=== PATIENT | female | born 1985 | race Caucasian/White ===

== ENCOUNTER 2024-08-06 18:08 | Emergency (ER) | payer SELFPAY ==
[2024-08-06] VITALS (9 sets, daily range): BP systolic 122–160; BP diastolic 74–110; PULSE 117–127; RESP 11–24; TEMP 37.1; O2SAT 98–100
--- OUTSIDE RECORDS SUMMARY | 2024-08-06 18:11 | XMS_ITS | Encounter Summary ---
Author Organization [facility] - [facility] Address [address] [place] [address] Care Team Providers Care Strainer Cleaner Name Role Phone Mana Choudhary MD Primary Care Provider [phone] Encounter Details Date Type Department Care Team (Late st Contact Info) Description 10/17/2022 Roadster Message [facility] Patient Accounts [address] [place] [address] [facility] Payment Plan Social History Tobacco Use Types Packs/Day Years Used Date Smoking Tobacco: Never Assessed Comments Unknown Sex and Gender Information Value Date Recorded Sex Assigned at Not on file Legal Sex Female 9:01 PM CDT Gender Identity Not on file Sexual Orientation Not on file documented as of this encounter Plan of Treatment Not on file documented as of this encounter Visit Diagnoses Not on filedocumented in this encounter Care Teams Strainer Cleaner Relationship Specialty [place] [address] [place], [place] [address] [id number] PCP - General FAMILY PRACTICE 01/26/20 documented as of this encounter
--- OUTSIDE RECORDS SUMMARY | 2024-08-06 18:11 | XMS_ITS | Encounter Summary ---
Author Organization [facility] - [facility] Address [address] [place] [address] Care Team Providers Care Coat Feller Name Role Phone Mana Choudhary MD Primary Care Provider [phone] Encounter Details Date Type Department Care Team (Late st Contact Info) Description 06/13/2022 BladeLogic Message [facility] Patient Accounts [address] [place] [address] [facility] ACTION REQUIRED Social History Tobacco Use Types Packs/Day Years [...] on filedocumented in this encounter Care Teams Coat Feller Relationship Specialty [place] [address] [place], [place] [address] [phone] PCP - General FAMILY PRACTICE 01/26/20 documented as of this encounter
--- OUTSIDE RECORDS SUMMARY | 2024-08-06 18:11 | XMS_ITS | Clinical Summary ---
Author Organization [facility] Address [address] [place] [address] Care Team Providers Care Airset Molder Name Role Phone Mana Choudhary MD Primary Care Provider [phone] Family History Medical History Relation Comments Breast Cancer Mother Relation Status Comments Mother Social History Tobacco Use Types Packs/Day Years Used Date Smoking Tobacco: Never Assessed Comments Unknown Sex and Gender Information Value Date Recorded Sex Assigned at Not on file Legal Sex Female 9:01 PM CDT Gender Identity Not on file Sexual Orientation Not on file Plan of Treatment Health Maintenance Due Date Last Done Comments Cervical Cancer Screening Pap Smear (Age 30 to 64) Every 3 Years 1984 Annual Physical 01/30/1987 Hepatitis C 01/30/2002 DTaP, Tdap and Td Vaccines (1 - Tdap) 01/30/2003 Hepatitis B Vaccines (1 of 3 - 19+ 3-dose series) 01/30/2003 Cervical Cancer Screening Pap with HPV Testing (Age 30 to 64) Every 5 Years 01/30/2014 Cervical Cancer Screening with HPV 01/30/2014 COVID-19 Vaccine ( season) 2023 Mammogram Screening 03/03/2026 03/03/2024, 08/01/2022, 04/26/2021, Additional history exists HPV Vaccines Aged Out No longer eligi ble based on patient's age to complete this topic Meningococcal B Vaccine Aged Out No l onger eligible based on patient's age to complete this topic Meningococcal Vaccine Aged Out No naye patricio eligible based on patient's age to complete this topic Pneumococcal Vaccine: Pediatrics (0 to 5 Years) and At-Risk Patients (6 to 64 Years) Aged Out No longer eligible based on patient's age to complete this topic RSV Immunizations Under 20 Months Aged Out No longer eligible based on patient's age to complete this topic Procedures Procedure Name Priority Date/Time Associated Diagnosis Comments MG SCREENING W PAYTON LASHAE DIGI Routine 03/03/2024 2:30 PM ASSIGNMENT OFFICER Screening mammogram for breast cancer from Last 3 Months or Most Recently Relevant to Health Maintenance Results * MG SCREENING W PAYTON LASHAE DIGI (03/03/2024 2:30 PM ASSIGNMENT OFFICER) Anatomical Region Laterality Modality Breast Bilateral Mammography 03/03/2024 2:15 PM ASSIGNMENT OFFICER Impressions 03/03/2024 2:15 PM ASSIGNMENT OFFICER IMPRESSION: No suspicious change since the previous exams. Recommendation: 1: Routine Screening Bilateral in 1 Year Assessment: ACR BI-RADS 1 - NEGATIVE Ordered By: CLEMENCIA PÉREZ Interpreted By: Fabrizio Graves MD, 03/03/2024 2:15 PM Narrative 03/03/2024 2:15 PM ASSIGNMENT OFFICER [address] [place] [address] Examination: Digital screening mammogram with CAD. Clinical history: Asymptomatic patient presents for routine screening. Comparison: 08/01/2022, 04/26/2021, 02/16/2020, 03/10/2018, 04/13/2016. Technique: Bilateral digital mammograms. The exam was interpreted with the use of a computer-aided detection (CAD) system. Additional 3-D tomosynthesis images were acquired. Tissue density: The breast tissue is heterogeneously dense. Findings: The breast tissue is heterogeneously dense. The dense tissue may obscure some lesions mammographically. No suspicious mass, microcalcification or area of architectural distortion can be identified. From a mammographic standpoint, routine followup in one year would seem adequate. Clemencia Pérez DISPUTE COORDINATOR MAMMO Final Result from Last 3 Months or Most Recently Relevant to Health Maintenance Insurance [facility] Care Teams Airset Molder Relationship Specialty Start Date End Date Mana Choudhary MD [address] [place] [phone] PCP - General FAMILY PRACTICE 01/26/20
--- NOTE | 2024-08-06 18:17 | ECG_ITS ---
Test Date: 2024-08-06 18:35:22 Measurements Intervals [place] Rate: 125 P: 55 IN: 142 QRS: 45 QRSD: 90 T: 35 QT: 298 QTc: 430 Interpretive Statements SINUS TACHYCARDIA EARLY PRECORDIAL R/S TRANSITION BASELINE ARTIFACT- III, AVL, AVF ABNORMAL ECG No previous ECG available for comparison Electronically Signed On 08-06-2024 18:40:10 CDT by Scott Hsieh D.O.
--- NOTE | 2024-08-06 18:17 | ED.PSYCH ---
HPI - Psych General Chief Complaint: Overdose <Bhavya Rubia Hernandez APRN - Last Filed: 08/06/24 18:27> Stated Complaint: Overdose-9-+ pills <Bhavya CastellanoAnnie Hernandez APRN - Last Filed: 08/06/24 18:27> Time Seen by Provider: 08/06/24 18:13 <Bhavya Rubia Hernandez APRN - Last Filed: 08/06/24 18:27> Focused HPI: Patient is a 39-year-old female presents to the ER after taking a ?handful of pills around 1715 this evening. She reports she thinks these pills include Abilify, duloxetine, phentermine, and lisinopril. Patient reports she told her boyfriend earlier today that she cheated on him and that's why she became suicidal. She denies any other previous suicide attempts. Patient reports she attempted to throw up after taking the pills and was successful in bringing up ?about 12 of them. She endorses history of high blood pressure and depression that started after my son was murdered 2 years ago. Patient reports she feels hot and woozy at the time of examination. GENERAL: Well-appearing, well-nourished, and in no acute distress. HEAD: Normocephalic, atraumatic. CHEST: Clear to auscultation. ?No respiratory distress. HEART: Regular rate and rhythm.? NEURO: ?Alert and oriented x3. Patient screened in triage and initial orders placed.? ?Additional care and disposition to be based upon?diagnostic testing and treatment. <Bhavya Hernandez APRN - Last Filed: 08/06/24 18:27> Source: patient and other (Steven) <Fatoumata Bell MD - Last Filed: 08/07/24 12:10> Mode of arrival: ambulatory <Fatoumata Bell MD - Last Filed: 08/07/24 12:10> Limitations: no limitations <Fatoumata Bell MD - Last Filed: 08/07/24 12:10> History of Present Illness HPI Narrative: Agree with the above with the following additions/corrections: Patient states that she took 15 tablets of 5 mg Abilify, 60 tablets of 60 mg duloxetine and an unknown number of lisinopril and trazodone. She denies any chest pain, headache, abdominal pain. She denies any nausea although she did attempt to vomit and states that approximately 15 pills came up. She states that she feels hot and cold and flushed. She denies any difficulty breathing. <Fatoumata Bell MD - Last Filed: 08/07/24 12:10> Related Data Allergies/Adverse Reactions: Allergies Allergy/AdvReac Type Severity Reaction Status Date / Time lamotrigine Allergy Unknown Rash Verified 08/06/24 18:10 Penicillins Allergy Unknown Rash Verified 08/06/24 18:10 <Bhavya Hernandez, MARKETING SERVICES VICE PRESIDENT - Last Filed: 08/06/24 18:27> PMFSH Past Medical History Medical History: Medical History Depression Hypertension <Bhavya Hernandez MARKETING SERVICES VICE PRESIDENT - Last Filed: 08/06/24 18:27> Family History Family History: Family History Son Murder approx 2022 <Bhavya Hernandez, MARKETING SERVICES VICE PRESIDENT - Last Filed: 08/06/24 18:27> Social History Social History: Social History Substance use type: does not use <Bhavya Hernandez, MARKETING SERVICES VICE PRESIDENT - Last Filed: 08/06/24 18:27> Exam Narrative: GENERAL: Well-appearing, well-nourished, and in no acute distress. HEAD: Normocephalic, atraumatic. EYES: Non injected, non icteric. Extraocular movements intact. No ocular clonus. ENT: Nares clear, no rhinorrhea or epistaxis. NECK: Supple. CHEST: Speaking in full sentences. No respiratory distress. HEART: Tachycardic rate and rhythm. . ABDOMEN: Soft, nondistended. EXTREMITIES: Normal range of motion. No lower extremity edema. SKIN: Warm, dry, no rash. NEURO: No focal deficits. Alert and oriented x3. No ankle myoclonus. PSYCH:Congruent mood and affect. Behavior: Calm, good eye contact. Speech: Appropriate rate, quantity and volume. Does not appear to be responding to internal stimulus <Fatoumata Bell MD - Last Filed: 08/07/24 12:10> Course Vital Signs Vital signs: Vital Signs Temperature 98.8 F 08/06/24 18:23 Pulse Rate 125 H 08/06/24 18:23 Respiratory Rate 20 08/06/24 18:23 Blood Pressure 152/97 H 08/06/24 18:23 Pulse Oximetry 100 08/06/24 18:23 Oxygen Delivery Room Air 08/06/24 18:23 Temperature 97.5 F L 08/07/24 11:10 Pulse Rate 109 H 08/07/24 11:10 Respiratory Rate 16 08/07/24 11:10 Blood Pressure 162/102 H 08/07/24 11:10 Pulse Oximetry 100 08/07/24 11:10 Oxygen Delivery Room Air 08/06/24 18:23 <Bhavya Hernandez, MARKETING SERVICES VICE PRESIDENT - Last Filed: 08/06/24 18:27> Vital Signs Temperature 98.8 F 08/06/24 18:23 Pulse Rate 125 H 08/06/24 18:23 Respiratory Rate 20 08/06/24 18:23 Blood Pressure 152/97 H 08/06/24 18:23 Pulse Oximetry 100 08/06/24 18:23 Oxygen Delivery Room Air 08/06/24 18:23 Temperature 97.5 F L 08/07/24 11:10 Pulse Rate 109 H 08/07/24 11:10 Respiratory Rate 16 08/07/24 11:10 Blood Pressure 162/102 H 08/07/24 11:10 Pulse Oximetry 100 08/07/24 11:10 Oxygen Delivery Room Air 08/06/24 18:23 <Fatoumata Bell MD - Last Filed: 08/07/24 12:10> Vital Signs Temperature 98.8 F 08/06/24 18:23 Pulse Rate 125 H 08/06/24 18:23 Respiratory Rate 20 08/06/24 18:23 Blood Pressure 152/97 H 08/06/24 18:23 Pulse Oximetry 100 08/06/24 18:23 Oxygen Delivery Room Air 08/06/24 18:23 Temperature 97.5 F L 08/07/24 11:10 Pulse Rate 109 H 08/07/24 11:10 Respiratory Rate 16 08/07/24 11:10 Blood Pressure 162/102 H 08/07/24 11:10 Pulse Oximetry 100 08/07/24 11:10 Oxygen Delivery Room Air 08/06/24 18:23 <Neymar Mai MD - Last Filed: 08/07/24 06:23> MDM - Psych MDM Narrative Medical decision making narrative: Patient presents to the emergency department after an intentional overdose the attempt to harm herself, stating in triage I want to . I don't want help. In the emergency department she is afebrile with vital signs that show hypertension and tachycardia. Normal QT/QTC. Leukocytosis. test negative. RN spoke with Poison Control Center: Most concerning is the duloxetine due to quantity and strength. States it has a 2-3 hour lifetime before absorption and will peak around 10 hours after ingestion. Watch for changes in LOC, coma, seizure, and serotonin toxicity Abilify peaks in 3-5 hours and can make the pt more fatigued and prolong QT Lisinopril peaks in 4-7 hours and can cause hypotension. Trazodone can increase fatigue and cause LOC changes. Roxana RN states to keep pt on monitor, keep IV access, Oxygen support as needed, and to repeat a 12 lead EKG in 4-6 hours, and monitor for serotonin toxicity 10 hours after ingestion will be 03:15am at which point she can be reassessed. Repeat EKG is timed to be repeated at 23:35. Patient is reassessed at 9:15 p.m.. She reports that her palpitations are gone. Heart rate is improving, at 110 - 115 beats per minute. She will be receiving her 2nd L fluid bolus. She continues to have no ankle clonus. EKG is accidentally performed earlier than anticipated. Another order is made. Her heart rate is between 110s and 115 at 22:20 at which time she is signed out to ED attending pending repeat EKG, reassessment after 3:15am. <Fatoumata Bell MD - Last Filed: 08/07/24 12:10> Patient presents to the emergency department after an intentional overdose the attempt to harm herself, stating in triage I want to . I don't want help. In the emergency department she is afebrile with vital signs that show hypertension and tachycardia. Normal QT/QTC. Leukocytosis. test negative. RN spoke with Poison Control Center: Most concerning is the duloxetine due to quantity and strength. States it has a 2-3 hour lifetime before absorption and will peak around 10 hours after ingestion. Watch for changes in LOC, coma, seizure, and serotonin toxicity Abilify peaks in 3-5 hours and can make the pt more fatigued and prolong QT Lisinopril peaks in 4-7 hours and can cause hypotension. Trazodone can increase fatigue and cause LOC changes. Roxana RN states to keep pt on monitor, keep IV access, Oxygen support as needed, and to repeat a 12 lead EKG in 4-6 hours, and monitor for serotonin toxicity 10 hours after ingestion will be 03:15am at which point she can be reassessed. Repeat EKG is timed to be repeated at 23:35. Patient is reassessed at 9:15 p.m.. She reports that her palpitations are gone. Heart rate is improving, at 110 - 115 beats per minute. She will be receiving her 2nd L fluid bolus. She continues to have no ankle clonus. EKG is accidentally performed earlier than anticipated. Another order is made. Her heart rate is between 110s and 115 at 22:20 at which time she is signed out to ED attending pending repeat EKG, reassessment after 3:15am. Repeat EKG showed no evidence of widened QRS The patient was observed until 3:15 and is medically clear for psychiatric evaluation referral transfer and admission. Poison control has signed off on the patient at this time <Neymar Mai MD - Last Filed: 08/07/24 06:23> Medical Records Attestation: I reviewed the patient's medical records. <Fatoumata Bell MD - Last Filed: 08/07/24 12:10> Medical records narrative: Attempted to but patient has not been here before <Fatoumata Bell MD - Last Filed: 08/07/24 12:10> Lab Data Attestation: I reviewed the patient's lab results. <Fatoumata Bell MD - Last Filed: 08/07/24 12:10> Lab results narrative: Normal chemistry <Fatoumata Bell MD - Last Filed: 08/07/24 12:10> Result diagrams: 08/06/24 19:07 08/06/24 19:07 <Bhavya Hernandez, MARKETING SERVICES VICE PRESIDENT - Last Filed: 08/06/24 18:27> Labs: Lab Results 08/06/24 08/06/24 08/06/24 Range/Units 19:07 19:09 19:13 WBC 12.4 H (4.5-10.0) K/mm3 RBC 5.43 H (4.2-5.4) M/mm3 Hgb 15.9 H (12.0-15.0) g/dL Hct 46.6 (37.0-47.0) % MCV 85.8 (80-100) fl MCH 29.3 (26-34) pg MCHC 34.1 (32-36) g/dl RDW 11.9 (11.5-14.5) % Plt Count 338 (150-375) k/mm3 MPV 9.4 (7.4-10.4) fl Immature Gran % (Auto) 0.4 (0-0.5) % Neut % (Auto) 65.9 (45.5-73.1) % Lymph % (Auto) 25.8 (18.3-44.2) % [place] % (Auto) 5.6 (2.6-8.5) % Eos % (Auto) 1.1 (0-4.4) % Baso % (Auto) 1.2 (0.2-1.2) % Lymph # (Auto) 3.21 H (0.9-3.2) K/mm3 [place] # (Auto) 0.7 H (0.1-0.6) K/mm3 Eos # (Auto) 0.1 (0-0.3) K/mm3 Baso # (Auto) 0.2 H (0.0-0.1) K/mm3 Abs Immat Gran (auto) 0.05 H (0.00-0.031) K/mm3 Absolute Neuts (auto) 8.2 H (1.3-6.7) K/mm3 Absolute Nucleated RBC 0.000 (0.0-0.012) K/mm3 Nucleated RBC % 0.0 (0.0-0.2) % Sodium 137 (137-145) mmol/L Potassium 3.7 (3.4-5.0) mmol/L Chloride 101 (98-107) mmol/L Carbon Dioxide 26 (22-30) mmol/L Anion Gap 10 (4-12) mmol/L BUN 12 (7-17) mg/dL Creatinine 0.79 (0.7-1.0) mg/dL Estim Creat Clear Calc 81 ml/min Estimated GFR > 60 (59 - ) Glucose 99 (65-110) mg/dL Calcium 9.2 (8.4-10.2) mg/dL Total Bilirubin 0.3 (0.2-1.3) mg/dL AST 25 (14-36) U/L ALT 18 (6-35) U/L Alkaline Phosphatase 57 (38-126) U/L Total Protein 8.0 (6.3-8.2) g/dL Albumin 4.5 (3.5-5.1) g/dL TSH 1.410 (0.465-4.680) uIU/mL Urine Color Yellow (Yellow) Urine Appearance Clear (Clear) Urine pH 6.0 (5.0-9.0) Ur Specific [place] 1.005 (1.001-1.035) Urine Protein Negative (Negative) mg/dL Urine Glucose (UA) Negative (Negative) mg/dL Urine Ketones Negative (Negative) mg/dL Ur Blood (Man) Negative (Negative) Urine Nitrate Negative (Negative) Urine Bilirubin Negative (Negative) Urine Urobilinogen 0.2 (<2.0) mg/dL Leukocyte Esterase Rfl Negative (Negative) LOUANN/UL POC Urine HCG, Qual Negative (Negative) Salicylates < 1.0 L (2-20) mg/dL Urine Opiates Screen Negative (Negative) Urine Methadone Screen Negative (Negative) Acetaminophen < 10 L (10-30) ug/mL Ur Barbiturates Screen Negative (Negative) Ur Phencyclidine Scrn Negative (Negative) Ur Amphetamine Screen Negative (Negative) U Benzodiazepines Scrn Negative (Negative) Urine Cocaine Screen Negative (Negative) U Cannabinoids Screen Positive A (Negative) Ethyl Alcohol < 10 (<10) mg/dL SARS-CoV-2 RNA (RT-PCR) Negative (Negative) <Bhavya Hernandez, MARKETING SERVICES VICE PRESIDENT - Last Filed: 08/06/24 18:27> Lab Results 08/06/24 08/06/24 08/06/24 Range/Units 19:07 19:09 19:13 WBC 12.4 H (4.5-10.0) K/mm3 RBC 5.43 H (4.2-5.4) M/mm3 Hgb 15.9 H (12.0-15.0) g/dL Hct 46.6 (37.0-47.0) % MCV 85.8 (80-100) fl MCH 29.3 (26-34) pg MCHC 34.1 (32-36) g/dl RDW 11.9 (11.5-14.5) % Plt Count 338 (150-375) k/mm3 MPV 9.4 (7.4-10.4) fl Immature Gran % (Auto) 0.4 (0-0.5) % Neut % (Auto) 65.9 (45.5-73.1) % Lymph % (Auto) 25.8 (18.3-44.2) % [place] % (Auto) 5.6 (2.6-8.5) % Eos % (Auto) 1.1 (0-4.4) % Baso % (Auto) 1.2 (0.2-1.2) % Lymph # (Auto) 3.21 H (0.9-3.2) K/mm3 [place] # (Auto) 0.7 H (0.1-0.6) K/mm3 Eos # (Auto) 0.1 (0-0.3) K/mm3 Baso # (Auto) 0.2 H (0.0-0.1) K/mm3 Abs Immat Gran (auto) 0.05 H (0.00-0.031) K/mm3 Absolute Neuts (auto) 8.2 H (1.3-6.7) K/mm3 Absolute Nucleated RBC 0.000 (0.0-0.012) K/mm3 Nucleated RBC % 0.0 (0.0-0.2) % Sodium 137 (137-145) mmol/L Potassium 3.7 (3.4-5.0) mmol/L Chloride 101 (98-107) mmol/L Carbon Dioxide 26 (22-30) mmol/L Anion Gap 10 (4-12) mmol/L BUN 12 (7-17) mg/dL Creatinine 0.79 (0.7-1.0) mg/dL Estim Creat Clear Calc 81 ml/min Estimated GFR > 60 (59 - ) Glucose 99 (65-110) mg/dL Calcium 9.2 (8.4-10.2) mg/dL Total Bilirubin 0.3 (0.2-1.3) mg/dL AST 25 (14-36) U/L ALT 18 (6-35) U/L Alkaline Phosphatase 57 (38-126) U/L Total Protein 8.0 (6.3-8.2) g/dL Albumin 4.5 (3.5-5.1) g/dL TSH 1.410 (0.465-4.680) uIU/mL Urine Color Yellow (Yellow) Urine Appearance Clear (Clear) Urine pH 6.0 (5.0-9.0) Ur Specific [place] 1.005 (1.001-1.035) Urine Protein Negative (Negative) mg/dL Urine Glucose (UA) Negative (Negative) mg/dL Urine Ketones Negative (Negative) mg/dL Ur Blood (Man) Negative (Negative) Urine Nitrate Negative (Negative) Urine Bilirubin Negative (Negative) Urine Urobilinogen 0.2 (<2.0) mg/dL Leukocyte Esterase Rfl Negative (Negative) LOUANN/UL POC Urine HCG, Qual Negative (Negative) Salicylates < 1.0 L (2-20) mg/dL Urine Opiates Screen Negative (Negative) Urine Methadone Screen Negative (Negative) Acetaminophen < 10 L (10-30) ug/mL Ur Barbiturates Screen Negative (Negative) Ur Phencyclidine Scrn Negative (Negative) Ur Amphetamine Screen Negative (Negative) U Benzodiazepines Scrn Negative (Negative) Urine Cocaine Screen Negative (Negative) U Cannabinoids Screen Positive A (Negative) Ethyl Alcohol < 10 (<10) mg/dL SARS-CoV-2 RNA (RT-PCR) Negative (Negative) <Fatoumata Bell MD - Last Filed: 08/07/24 12:10> Lab Results 08/06/24 08/06/24 08/06/24 Range/Units 19:07 19:09 19:13 WBC 12.4 H (4.5-10.0) K/mm3 RBC 5.43 H (4.2-5.4) M/mm3 Hgb 15.9 H (12.0-15.0) g/dL Hct 46.6 (37.0-47.0) % MCV 85.8 (80-100) fl MCH 29.3 (26-34) pg MCHC 34.1 (32-36) g/dl RDW 11.9 (11.5-14.5) % Plt Count 338 (150-375) k/mm3 MPV 9.4 (7.4-10.4) fl Immature Gran % (Auto) 0.4 (0-0.5) % Neut % (Auto) 65.9 (45.5-73.1) % Lymph % (Auto) 25.8 (18.3-44.2) % [place] % (Auto) 5.6 (2.6-8.5) % Eos % (Auto) 1.1 (0-4.4) % Baso % (Auto) 1.2 (0.2-1.2) % Lymph # (Auto) 3.21 H (0.9-3.2) K/mm3 [place] # (Auto) 0.7 H (0.1-0.6) K/mm3 Eos # (Auto) 0.1 (0-0.3) K/mm3 Baso # (Auto) 0.2 H (0.0-0.1) K/mm3 Abs Immat Gran (auto) 0.05 H (0.00-0.031) K/mm3 Absolute Neuts (auto) 8.2 H (1.3-6.7) K/mm3 Absolute Nucleated RBC 0.000 (0.0-0.012) K/mm3 Nucleated RBC % 0.0 (0.0-0.2) % Sodium 137 (137-145) mmol/L Potassium 3.7 (3.4-5.0) mmol/L Chloride 101 (98-107) mmol/L Carbon Dioxide 26 (22-30) mmol/L Anion Gap 10 (4-12) mmol/L BUN 12 (7-17) mg/dL Creatinine 0.79 (0.7-1.0) mg/dL Estim Creat Clear Calc 81 ml/min Estimated GFR > 60 (59 - ) Glucose 99 (65-110) mg/dL Calcium 9.2 (8.4-10.2) mg/dL Total Bilirubin 0.3 (0.2-1.3) mg/dL AST 25 (14-36) U/L ALT 18 (6-35) U/L Alkaline Phosphatase 57 (38-126) U/L Total Protein 8.0 (6.3-8.2) g/dL Albumin 4.5 (3.5-5.1) g/dL TSH 1.410 (0.465-4.680) uIU/mL Urine Color Yellow (Yellow) Urine Appearance Clear (Clear) Urine pH 6.0 (5.0-9.0) Ur Specific [place] 1.005 (1.001-1.035) Urine Protein Negative (Negative) mg/dL Urine Glucose (UA) Negative (Negative) mg/dL Urine Ketones Negative (Negative) mg/dL Ur Blood (Man) Negative (Negative) Urine Nitrate Negative (Negative) Urine Bilirubin Negative (Negative) Urine Urobilinogen 0.2 (<2.0) mg/dL Leukocyte Esterase Rfl Negative (Negative) LOUANN/UL POC Urine HCG, Qual Negative (Negative) Salicylates < 1.0 L (2-20) mg/dL Urine Opiates Screen Negative (Negative) Urine Methadone Screen Negative (Negative) Acetaminophen < 10 L (10-30) ug/mL Ur Barbiturates Screen Negative (Negative) Ur Phencyclidine Scrn Negative (Negative) Ur Amphetamine Screen Negative (Negative) U Benzodiazepines Scrn Negative (Negative) Urine Cocaine Screen Negative (Negative) U Cannabinoids Screen Positive A (Negative) Ethyl Alcohol < 10 (<10) mg/dL SARS-CoV-2 RNA (RT-PCR) Negative (Negative) <Neymar Mai MD - Last Filed: 08/07/24 06:23> ECG Data EKG #1: Attestation: I personally reviewed and interpreted this ECG as follows: <Fatoumata Bell MD - Last Filed: 08/07/24 12:10> ECG completion date: 08/06/24 <Fatoumata Bell MD - Last Filed: 08/07/24 12:10> ECG completion time: 18:35 <Fatoumata Bell MD - Last Filed: 08/07/24 12:10> Interpretation: Sinus tachycardia at a rate of 125 beats per minute. MO interval 142. QRS 90. QT/QTC 298/372. Good R-wave progression across the precordial leads. T-wave inversion in 3 but otherwise upright in normal in contiguous leads 2 and AVF. No other T-wave inversions. Normal QT/QTC. <Fatoumata Bell MD - Last Filed: 08/07/24 12:10> EKG #2: Attestation: I personally reviewed and interpreted this ECG as follows: <Fatoumata Bell MD - Last Filed: 08/07/24 12:10> ECG completion date: 08/06/24 <Fatoumata Bell MD - Last Filed: 08/07/24 12:10> ECG completion time: 21:52 <Fatoumata eBll MD - Last Filed: 08/07/24 12:10> Interpretation: Sinus tachycardia at a rate of 116 beats per minute. MO interval 124. QRS 90. QT/QTC 321/390. Good R-wave progression across the precordial leads. QTC normal <Fatoumata Bell MD - Last Filed: 08/07/24 12:10> Discharge Plan Discharge Clinical Impression: Suicide attempt by multiple drug overdose, Leukocytosis, Marijuana use <Bhavya Hernandez APRN - Last Filed: 08/06/24 18:27> Patient Disposition: Psychiatric Hosp <Bhavya Hernandez APRN - Last Filed: 08/06/24 18:27> Condition: Stable <Bhavya Hernandez APRN - Last Filed: 08/06/24 18:27> Patient Language: Kazakh <Bhavya Hernandez APRN - Last Filed: 08/06/24 18:27> Follow-up/Referrals: UNKNOWN,DOCTOR [Primary Care Provider] - <Bhavya Hernandez APRN - Last Filed: 08/06/24 18:27>
--- OUTSIDE RECORDS SUMMARY | 2024-08-06 18:49 | XMS_ITS | Encounter Summary ---
Author Organization [facility] Address [address] [place] [address] Care Team Providers Care Guzzler Builder Name Role Phone Mana Choudhary MD Primary Care Provider [phone] Encounter Details Date Type Department Care Team (Late st Contact Info) Description 10/17/2022 [employer] Message [facility] Patient Accounts [address] [place] [address] [facility] Social History Tobacco Use [...] on filedocumented in this encounter Care Teams Guzzler Builder Relationship Specialty [place] [address] [place], [place] [address] [id number] PCP - General FAMILY PRACTICE 01/26/20 documented as of this encounter
--- OUTSIDE RECORDS SUMMARY | 2024-08-06 18:49 | XMS_ITS | Encounter Summary ---
Author Organization [facility] - [facility] Address [address] [place] [address] Care Team Providers Care Hull Drafter Name Role Phone Mana Choudhary MD Primary Care Provider [phone] Encounter Details Date Type Department Care Team (Late st Contact Info) Description 06/13/2022 [employer] Message [facility] Patient Accounts [address] [place] [address] [facility] REQUIRED Social History Tobacco Use [...] on filedocumented in this encounter Care Teams Hull Drafter Relationship Specialty [place] [address] [place], [place] [address] [id number] PCP - General FAMILY PRACTICE 01/26/20 documented as of this encounter
--- OUTSIDE RECORDS SUMMARY | 2024-08-06 18:49 | XMS_ITS | Referral Summary ---
Author Organization [facility] Address [address] [place] [address] Care Team Providers Care Trichologist Name Role Phone Cheri Almonte MD Primary Care Provider [phone] Allergies Active Allergy Reactions Criticality Noted Date Comments Penicillin G Hives Medium 06/24/2017 Medications minocycline (MINOCIN,DYNACI N) 50 mg capsule Take 50 mg by mouth 2 (two) times a day. Active albuterol HFA (PROVENTIL HFA,VENTOLIN HFA,PROAIR HFA) 90 mcg/actuation inhaler Inhale 2 puffs every 4 (four) hours as needed for wheezing or shortness of breath 6.7 g 4 Active benzonatate (TESSALON) 100 mg capsuleIndicati ons:Cough Take 1 capsule (100 mg total) by mouth every 8 (eight) hours 21 capsule 4 Active albuterol HFA (PROVENTIL HFA,VENTOLIN HFA,PROAIR HFA) 90 mcg/actuation inhalerIndicati ons:Acute Asthma Attack Inhale 2 puffs every 4 (four) hours as needed for wheezing 1 each 4 Active fluticasone propionate (FLOVENT HFA) 110 mcg/actuation inhaler Inhale 1 puff 2 (two) times a day Rinse mouth with water after use. Do not swallow. 1 each 4 Active Active Problems No known active problems Social History Tobacco Use Types Packs/Day Years Used Date Smoking Tobacco: Every Day Cigarettes 1 10 Smokeless Tobacco: Never Personal Safety Answer Date Recorded Have you ever been in or are you currently in a harmful physical or emotional relationship or is someone making you feel afraid or unsafe? Denies 12/12/2023 Comments No Sex and Gender Information Value Date Recorded Sex Assigned at Not on file Legal Sex Female 5:41 PM TANNING WHEEL OPERATOR Gender Identity Female 06/22/2023 5:16 AM TANNING WHEEL OPERATOR Sexual Orientation Not on file Last Filed Vital Signs Vital Sign Reading Time Taken Comments Blood Pressure 116/78 12/13/2023 5:30 AM CDT Pulse 88 12/13/2023 5:15 AM CDT Temperature 36.9 C (98.5 F) 12/12/2023 8:42 PM CDT Respiratory Rate 20 12/13/2023 5:30 AM CDT Oxygen Saturation 97% 12/13/2023 5:15 AM CDT Inhaled Oxygen Concentration - - Weight 71.2 kg (156 lb 15.5 oz) 12/12/2023 8:42 PM CDT Height 160 cm (5' 3 ) 12/12/2023 8:42 PM CDT Body Mass Index 27.81 12/12/2023 8:42 PM CDT Plan of Treatment Not on file Insurance Useful at [employer] O[employer] Advance Directives For more information, please contact: [phone] * Full Code (Latest Code Status on File) Date Activated Date Inactivated Comments 06/24/2017 12:56 PM 06/24/2017 5:15 PM Care Teams Trichologist Relationship Specialty Start Date End Date Cheri Almonte MD PCP - General 08/15/16
--- OUTSIDE RECORDS SUMMARY | 2024-08-06 18:49 | XMS_ITS | Clinical Summary ---
Author Organization [facility] Address [address] [place] [address] Care Team Providers Care Trimming Machine Operator Name Role Phone Mana Choudhary MD Primary Care Provider [phone] Family History Medical History Relation Comments Breast [...] PAYTON LASHAE DIGI Routine 03/03/2024 2:30 PM MAILING MACHINE ASSISTANT Screening mammogram for breast cancer from Last 3 Months or Most Recently Relevant to Health Maintenance Results * MG SCREENING W PAYTON LASHAE DIGI (03/03/2024 2:30 PM MAILING MACHINE ASSISTANT) Anatomical Region Laterality Modality Breast Bilateral Mammography 03/03/2024 2:15 PM MAILING MACHINE ASSISTANT Impressions 03/03/2024 2:15 PM MAILING MACHINE ASSISTANT IMPRESSION: No suspicious change since the previous exams. Recommendation: 1: Routine Screening Bilateral in 1 Year Assessment: ACR BI-RADS 1 - NEGATIVE Ordered By: CLEMENCIA PÉREZ Interpreted By: Fabrizio Graves MD, 03/03/2024 2:15 PM Narrative 03/03/2024 2:15 PM MAILING MACHINE ASSISTANT [address] [place] [address] Examination: Digital screening mammogram with CAD. Clinical [...] one year would seem adequate. Clemencia Pérez SPECIMEN BOSS MAMMO Final Result from Last 3 Months or Most Recently Relevant to Health Maintenance Insurance [facility] Care Teams Trimming Machine Operator Relationship Specialty Start Date End Date Mana Choudhary MD [address] [place] [id number] PCP - General FAMILY PRACTICE 01/26/20
--- OUTSIDE RECORDS SUMMARY | 2024-08-06 18:49 | XMS_ITS | Clinical Summary ---
Author Organization [facility] Address [address] [place] [address] Care Team Providers Care Magnet Maker Name Role Phone Cheri Almonte MD Primary Care Provider [phone] Allergies Active Allergy Reactions Criticality Noted Date [...] Active Active Problems No known active problems Surgical History Surgery Date Site/Laterality Comments COLONOSCOPY 05/29/2013 POLYPECTOMY FLEXIBLE SIGMOIDOSCOPY 05/29/2014 TUBAL LIGATION SECTION 2002 and 2006 LIPOSUCTION OVARIAN CYST SURGERY Medical History Medical History Date Comments Irritable bowel syndrome Chronic diarrhea Colon polyp Heme positive stool Hemorrhoids Social History Tobacco Use Types Packs/Day Years [...] on file Legal Sex Female 5:41 PM UROGYNAECOLOGIST Gender Identity Female 06/22/2023 5:16 AM UROGYNAECOLOGIST Sexual Orientation Not on file Obstetrics History Last Filed Vital Signs Vital Sign Reading [...] 12/12/2023 8:42 PM CDT Plan of Treatment Health Maintenance Due Date Last Done Comments Cervical Cancer Screening 1984 Depression Screening 1984 Hepatitis C Screening 1984 DTaP/Tdap/Td Vaccine (1 - Tdap) 01/30/1995 Varicella Vaccines (1 of 2 - 13+ 2-dose series) 01/30/1997 Hepatitis B Screening 01/30/2002 Regular Well Visit/Exam 18-64 01/30/2002 Pneumococcal vaccine <65 (1 of 2 - PCV) 01/30/2003 Breast Cancer Screening-Mammogram 08/02/2023 08/01/2022, 04/26/2021, 02/16/2020 Covid-19 Vaccine ( season) 2023 02/13/2022, 03/05/2021, 05/22/2020, Additional history exists Influenza Vaccine (#1) 2023 , 02/14/2020, 02/17/2017, Additional history exists HPV Vaccines Aged Out No longer eligi ble based on patient's age to complete this topic Insurance [employer] Advance Directives For more information, please contact: [phone] * Full Code (Latest Code Status on File) Date Activated Date Inactivated Comments 06/24/2017 12:56 PM 06/24/2017 5:15 PM Care Teams Magnet Maker Relationship Specialty Start Date End Date Cheri Almonte MD PCP - General 08/15/16
[2024-08-06 19:15] LABS: BEDSIDEPREGUCG Negative (Negative)
[2024-08-06 19:21] LABS: Basophils Absolute Auto 0.2 K/mm3 (0.0-0.1); Basophils Percent Auto 1.2 % (0.2-1.2); Eosinophils Absolute Auto 0.1 K/mm3 (0-0.3); Eosinophils Percent Auto 1.1 % (0-4.4); Hematocrit 46.6 % (37.0-47.0); Hemoglobin 15.9 g/dL (12.0-15.0); Immature Granulocyte Absolute 0.05 K/mm3 (0.00-0.031); Immature Granulocyte Percent A 0.4 % (0-0.5); Lymphocytes Absolute Auto 3.21 K/mm3 (0.9-3.2); Lymphocytes Percent Auto 25.8 % (18.3-44.2); Mean Corpuscular HGB Conc 34.1 g/dl (32-36); Mean Corpuscular Hemoglobin 29.3 pg (26-34); Mean Corpuscular Volume 85.8 fl (80-100); Mean Platelet Volume 9.4 fl (7.4-10.4); Monocytes Absolute Auto 0.7 K/mm3 (0.1-0.6); Monocytes Percent Auto 5.6 % (2.6-8.5); Neutrophils Absolute Auto 8.2 K/mm3 (1.3-6.7); Neutrophils Percent Auto 65.9 % (45.5-73.1); Platelet Count Result 338 k/mm3 (150-375); Red Blood Count 5.43 M/mm3 (4.2-5.4); Red Cell Distribution Width 11.9 % (11.5-14.5); White Blood Count 12.4 K/mm3 (4.5-10.0)
--- NOTE | 2024-08-06 19:23 | PC.NURSE ---
Received report from CHANDNI Mendoza for continuous of care. Pt lying on stretcher, respirations even and unlabored. Pt reports palpatations HR 120-135, and dizziness. Pt denies n/v and SOB. Pt continuous pulse oximeter and patient monitor.
--- NOTE | 2024-08-06 19:23 | PC.NURSE ---
RN spoke with Roxana TARIQ at [place] poison control who states the following Most concerning is the duloxetine due to quantity and strength. States it has a 2-3 hour lifetime before absorption and will peak around 10 hours after ingestion. Watch for changes in LOC, coma, seizure, and serotonin toxicity Abilify peaks in 3-5 hours and can make the pt more fatigued and prolong QT Lisinopril peaks in 4-7 hours and can cause hypotension Trazodone can increase fatigue and cause LOC changes. Roxana RN states to keep pt on monitor, keep IV access, Oxygen support as needed, and to repeat a 12 lead EKG in 4-6 hours, and monitor for serotonin toxicity
[2024-08-06 19:31] LABS: Add Urine Microscopic? NO; Appearance Urine Clear (Clear); Bilirubin Urine Negative (Negative); Blood Urine Negative (Negative); Color Urine Yellow (Yellow); Glucose Urine UA Negative (Negative); Ketones Urine Negative (Negative); Leukocyte Esterase Ur Negative LEU/UL (Negative); Nitrate Urine Negative (Negative); Protein Urine Negative (Negative); Specific Grav Ur 1.005 (1.001-1.035); Urobilinogen Urine 0.2 mg/dL (<2.0)
[2024-08-06 19:33] LABS: Alanine Aminotransferase 18 U/L (6-35); Albumin Level 4.5 g/dL (3.5-5.1); Alkaline Phosphatase 57 U/L (38-126); Anion Gap 10 mmol/L (4-12); Aspartate Amino Transferase 25 U/L (14-36); Bilirubin,Total 0.3 mg/dL (0.2-1.3); Blood Urea Nitrogen 12 mg/dL (7-17); Calcium 9.2 mg/dL (8.4-10.2); Carbon Dioxide 26 mmol/L (22-30); Chloride 101 mmol/L (98-107); Estimated CRCL calculation 81 ml/min; Estimated Glomerular Filt Rate > 60; Glucose 99 mg/dL (65-110); Potassium 3.7 mmol/L (3.4-5.0); Sodium 137 mmol/L (137-145)
[2024-08-06 19:34] LABS: Acetaminophen < 10 ug/mL (10-30); Ethanol < 10 mg/dL (<10); Salicylate < 1.0 mg/dL (2-20)
--- NOTE | 2024-08-06 19:47 | PC.NURSE ---
Report given to Dominique TARIQ, all questions answered
[2024-08-06 19:50] LABS: Amphetamine Screen Urine Negative (Negative); Barbiturate Screen Urine Negative (Negative); Benzodiazepines Screen Urine Negative (Negative); Cannabinoid Screen Urine Positive (Negative); Cocaine Screen Urine Negative (Negative); Methadone Screen Urine Negative (Negative); Opiate Screen Urine Negative (Negative); Phencyclidine Screen Urine Negative (Negative)
[2024-08-06 19:58] LABS: SARS-CoV-2 RNA PCR Negative (Negative)
[2024-08-06] MEDS: SODIUM CHLORIDE 0.9% IV 1,000 ML 999 ML IV CONT ×2 (20:37→21:56)
--- NOTE | 2024-08-06 23:35 | ECG_ITS ---
Test Date: 2024-08-06 23:29:17 Measurements Intervals [place] Rate: 118 P: 51 [place]: 148 QRS: 49 QRSD: 85 T: 34 QT: 311 QTc: 437 Interpretive Statements SINUS TACHYCARDIA ABNORMAL ECG Compared to ECG 08/06/2024 21:52:36 No significant changes Electronically Signed On 08-07-2024 06:41:36 CDT by Scott Hsieh D.O.
--- NOTE | 2024-08-06 23:35 | ECG_ITS ---
Test Date: 2024-08-06 21:52:36 Measurements Intervals [place] Rate: 116 P: 43 [place]: 124 QRS: 48 QRSD: 90 T: 28 QT: 321 QTc: 447 Interpretive Statements SINUS TACHYCARDIA ABNORMAL ECG Compared to ECG 08/06/2024 18:35:22 No significant changes Electronically Signed On 08-07-2024 06:41:27 CDT by Scott Hsieh D.O.
[2024-08-07] VITALS (16 sets, daily range): BP systolic 114–162; BP diastolic 67–108; PULSE 95–117; RESP 16–25; TEMP 36.4–36.6; O2SAT 97–100
--- NOTE | 2024-08-07 | PC.NURSE ---
Pt states she is feeling slightly better, still shaky and remains tachycardiac.
--- NOTE | 2024-08-07 01:02 | PC.NURSE ---
Update given to poison control.
--- NOTE | 2024-08-07 02:27 | PC.NURSE ---
Pt lying on stretcher with eyes closed, respirations even and unlabored with sitter at bedside.
--- NOTE | 2024-08-07 03:12 | PC.NURSE ---
Pt able to ambulate with steady gait, denies dizziness.
--- NOTE | 2024-08-07 03:53 | PC.NURSE ---
Crisis made aware, pt is medically cleared.
--- NOTE | 2024-08-07 04:10 | PC.NURSE ---
Poison control updated and states they will be signing off d/t patient not having any new symptoms and VS remain stable.
--- NOTE | 2024-08-07 07:18 | PC.NURSE ---
report given to CHANDNI Mendoza
--- NOTE | 2024-08-07 09:16 | PC.NURSE ---
Breakfast safety tray ordered for pt.
--- NOTE | 2024-08-07 09:20 | PC.NURSE ---
Per [facility], pt. is no risk indicated. SEVERINO Dwyer and Dr. Inman notified. Per SEVERINO and , sitter still needed d/t pt. being an elopement risk.
--- NOTE | 2024-08-07 10:09 | PC.NURSE ---
Report given to Tamra TARIQ at [facility]. All questions answered. Pt. going to bed # [id number].
--- NOTE | 2024-08-07 10:22 | PC.NURSE ---
Pt. ate 50% of breakfast. Pt. sleeping at this time, breathing equal and unlabored.
--- NOTE | 2024-08-07 11:19 | PC.NURSE ---
Matthieu notified that pt. jimmie. Star and is en route.
== END 2024-08-07 11:37 ==
PROVIDERS: Registered Nurse; Emergency Provider Student in an Organized Health Care Education/Training Program
DX: T43.592A Poisoning by other antipsychotics and neuroleptics, intentional self-harm, initial encounter (principal); T43.212A Poisoning by selective serotonin and norepinephrine reuptake inhibitors, intentional self-harm, initial encounter; T46.4X2A Poisoning by angiotensin-converting-enzyme inhibitors, intentional self-harm, initial encounter; F12.90 Cannabis use, unspecified, uncomplicated; D72.829 Elevated white blood cell count, unspecified; Z11.52 Encounter for screening for COVID-19; I10 Essential (primary) hypertension; F32.A Depression, unspecified; R00.0 Tachycardia, unspecified
CPT/HCPCS: 36415; 80053; 80143; 80179; 80307; 81003; 81025; 82077; 84443; 85025; 87635; 93005; 96360; 99285; J7030